=== PATIENT | female | born 2000 | race American Indian/Alaskan Native ===

== ENCOUNTER 2019-06-08 22:44 | Emergency (ER) | payer SELFPAY ==
[2019-06-09 00:43] VITALS: BP 128/72
== END 2019-06-09 00:45 | disposition left against medical advice (07) ==
LOC: ED 22:44
DX: N92.6 Irregular menstruation, unspecified (principal); Z53.21 Procedure and treatment not carried out due to patient leaving prior to being seen by health care provider

== ENCOUNTER 2019-06-17 10:58 | Emergency (ER) | payer BC, OTHER ==
[2019-06-17 11:24] VITALS: BP 123/69
--- NOTE | 2019-06-17 11:27 | Emergency Department Report ---
Chief Complaint: Sore Throat Stated Complaint: THROAT HURTS Time Seen by Provider: 06/17/19 11:25 - HPI History of Present Illness: Ms. Richardson has sore throat without tonsillar edema or exudates. MSE completed. Symptoms started this morning. - Exam Vital Signs: Vital Signs 06/17/19 11:21 Temperature 99.1 F Pulse Rate 104 H Respiratory 18 Rate Blood Pressure 123/69 O2 Sat by Pulse 98 Oximetry MSE screening note: Focused history and physical exam performed. Due to findings the following was ordered: ED Disposition for MSE Clinical Impression: Encounter for medical screening examination Disposition: MED SCREENING EXAM-LEFT Is pt being admited?: No Does the pt Need Aspirin: No Condition: Stable Referrals: JAY ISLAS MD [Staff Physician] - 3-5 Days
== END 2019-06-17 12:08 | disposition left against medical advice (07) ==
LOC: ED 10:58
DX: J02.9 Acute pharyngitis, unspecified (principal); Z00.8 Encounter for other general examination
CPT/HCPCS: 99281

== ENCOUNTER 2019-06-19 05:01 | Emergency (ER) | payer BC, OTHER ==
--- NOTE | 2019-06-19 09:50 | Emergency Department Report ---
HPI - General Chief Complaint: Sore Throat Time Seen by Provider: 06/19/19 09:16 - HPI HPI: Room 42 The patient is a 18 y/o F p/w a cc of sore throat. The pt states she awakened yd with pain with swallowing. The patient states she gargled with salt water and took [place] and it helped somewhat but she continues to have pain with eating. Patient denies history of fever. ED Past Medical Hx - Past Medical History Previous Medical History?: No - Surgical History Past Surgical History?: No Additional Surgical History: Breast - Family History Family history: no significant - Social History Smoking Status: Never Smoker Substance Use Type: None - Medications Home Medications: Home Medications Medication Instructions Recorded Confirmed Last Taken Type Amoxicillin/Potassium Clav 1 each PO BID #20 tablet 06/19/19 Unknown Rx [Augmentin 500-125 Tablet] HYDROcodone/APAP 5-325 [[place] 1 - 2 each PO Q6HR PRN #5 tablet 06/19/19 Unknown Rx 5/325] Ibuprofen [Motrin 800 MG tab] 800 mg PO Q8HR PRN #20 tablet 06/19/19 Unknown Rx ED Review of Systems ROS: Stated complaint: THROAT PAIN Other details as noted in HPI Constitutional: denies: fever ENT: throat pain Respiratory: denies: cough Physical Exam - Physical Exam Vital Signs: Vital Signs 06/19/19 05:09 Temperature 99.1 F Pulse Rate 114 H Respiratory 16 Rate Blood Pressure 116/61 O2 Sat by Pulse 97 Oximetry Physical Exam: GENERAL: The patient is well-developed well-nourished female sitting in chair not appearing to be in acute distress HEENT: Normocephalic. Atraumatic. Extraocular motions are intact. Patient has moist mucous membranes. Pharynx is erythematous with exudate greatest on the right NECK: Supple. No meningitic signs are noted. There is no stridor CHEST/LUNGS: There is no respiratory distress noted. SKIN: There is no rash. There is no edema. There is no diaphoresis. NEURO: The patient is awake, alert, and oriented. The patient is cooperative. The patient has normal speech MUSCULOSKELETAL: There is no evidence of acute injury. ED Course Vital Signs 06/19/19 05:09 Temperature 99.1 F Pulse Rate 114 H Respiratory 16 Rate Blood Pressure 116/61 O2 Sat by Pulse 97 Oximetry ED Medical Decision Making - Differential Diagnosis pharyngitis Critical care attestation.: If time is entered above; I have spent that time in minutes in the direct care of this critically ill patient, excluding procedure time. ED Disposition Clinical Impression: Acute pharyngitis Disposition: TO HOME OR SELFCARE Is pt being admited?: No Does the pt Need Aspirin: No Condition: Stable Instructions: Pharyngitis (ED) Additional Instructions: Return to the emergency department should you develop worsening symptoms, inability to tolerate food or liquids, high fever or any other concerns Prescriptions: Amoxicillin/Potassium Clav [Augmentin 500-125 Tablet] 1 each PO BID #20 tablet Ibuprofen [Motrin 800 MG tab] 800 mg PO Q8HR PRN #20 tablet PRN Reason: Pain, Moderate (4-6) HYDROcodone/APAP 5-325 [[place] 5/325] 1 - 2 each PO Q6HR PRN #5 tablet PRN Reason: Pain Referrals: PRIMARY CARE,MD [Primary Care Provider] - 3-5 Days LELSEE JACOBS MD [Staff Physician] - 3-5 Days (Dr. Jacobs is an education assistant (ear nose and throat doctor). Please follow-up with her for further evaluation) Time of Disposition: 09:54
[2019-06-19 10:09] VITALS: BP 116/60
== END 2019-06-19 10:08 | disposition home or self-care (01) ==
LOC: ED 05:01
DX: J02.9 Acute pharyngitis, unspecified (principal); Z79.1 Long term (current) use of non-steroidal anti-inflammatories (NSAID); Z79.2 Long term (current) use of antibiotics; Z79.899 Other long term (current) drug therapy
CPT/HCPCS: 99282

== ENCOUNTER 2019-09-03 10:31 | Emergency (ER) | payer BC, OTHER ==
[2019-09-03 10:38] VITALS: BP 119/64
--- NOTE | 2019-09-03 11:08 | Emergency Department Report ---
Chief Complaint: Urogenital-Female Stated Complaint: SORES INSIDE VAGINA Time Seen by Provider: 09/03/19 11:01 - HPI History of Present Illness: PAINFUL INTERCOURSE LAST PM- PARTNER LOOKED AND SHE HAD LESIONS IN VAGINAL THEY ARE PAINFUL. NO discharge. No hx herpes. Has IUD. LMP 4-3 - ROS Review of Systems: painful vag lesions no abd pain no vag dc no back pain no dysuria no fever no chills - Exam Vital Signs: Vital Signs 09/03/19 10:35 Temperature 98.0 F Pulse Rate 103 H Respiratory 16 Rate Blood Pressure 119/64 O2 Sat by Pulse 98 Oximetry HR 90 on exam Physical Exam: abd snt no dc no dysuria has IUD LMP 4-3 Her OB is at [facility] Needs HSV testing MSE screening note: Focused history and physical exam performed. Due to findings the following was ordered: Patient discussed with doctor:: LILIAN DUONG ED Disposition for MSE Condition: Stable
== END 2019-09-03 12:18 | disposition left against medical advice (07) ==
LOC: ED 10:31
DX: N89.8 Other specified noninflammatory disorders of vagina (principal)
CPT/HCPCS: 99281

== ENCOUNTER 2021-02-13 09:57 | Emergency (ER) | payer BC, OTHER ==
[2021-02-13] MEDS ORDERED: KETOROLAC 30 MG/1 ML INJ IV ONE (10:27)
[2021-02-13] MEDS ORDERED: SODIUM CHLORIDE 0.9% 1000 ML 1,000 ML IV ONE (10:28)
--- NOTE | 2021-02-13 10:28 | Emergency Department Report ---
ED Abdominal Pain HPI - General Chief Complaint: Abdominal Pain Stated Complaint: CRAMPS STOMACH PAIN RIB CAGE Time Seen by Provider: 02/13/21 10:20 Source: patient Mode of arrival: Ambulatory Limitations: No Limitations - History of Present Illness Initial Comments: 20-year-old female presents to the ER today with complaints of pain to her right upper quadrant and pain underneath her right ribs. She states that the pain started last night. She described as a constant sharp pain. She states that is worse when she takes a deep breath. She denies any associated nausea, vomiting, diarrhea, fever or chills. She denies any diarrhea. She denies any shortness of breath, calf pain or lower extremity swelling. She states that she took Tylenol without much relief of the pain. She has not had any abdominal surgeries in the past. She is currently on her menstrual cycle. MD Complaint: abdominal pain Severity scale (0 -10): 9 - Related Data Previous Rx's Medication Instructions Recorded Last Taken Type Amoxicillin/Potassium Clav 1 each PO BID #20 tablet 06/19/19 Unknown Rx [Augmentin 500-125 Tablet] HYDROcodone/APAP 5-325 [[place] 1 - 2 each PO Q6HR PRN #5 tablet 06/19/19 Unknown Rx 5/325] Ibuprofen [Motrin 800 MG tab] 800 mg PO Q8HR PRN #20 tablet 06/19/19 Unknown Rx Hyoscyamine Subl [Levsin Sl 0.125 0.125 mg SL Q6HR PRN #20 tab 02/13/21 Unknown Rx TAB] Allergies Allergy/AdvReac Type Severity Reaction Status Date / Time No Known Allergies Allergy Verified 02/13/21 10:20 ED Review of Systems ROS: Stated complaint: CRAMPS STOMACH PAIN RIB CAGE Other details as noted in HPI ED Past Medical Hx - Surgical History Additional Surgical History: Breast - Social History Smoking Status: Never Smoker Substance Use Type: None - Medications Home Medications: Home Medications Medication Instructions Recorded Confirmed Last Taken Type Amoxicillin/Potassium Clav 1 each PO BID #20 tablet 06/19/19 Unknown Rx [Augmentin 500-125 Tablet] HYDROcodone/APAP 5-325 [[place] 1 - 2 each PO Q6HR PRN #5 tablet 06/19/19 Unknown Rx 5/325] Ibuprofen [Motrin 800 MG tab] 800 mg PO Q8HR PRN #20 tablet 01/31/20 Unknown Rx Hyoscyamine Subl [Levsin Sl 0.125 0.125 mg SL Q6HR PRN #20 tab 02/13/21 Unknown Rx TAB] ED Physical Exam - General Limitations: No Limitations ED Course Vital Signs 02/13/21 02/13/21 10:18 13:52 Temperature 98.9 F 98.8 F Pulse Rate 118 H 96 H Respiratory 16 19 Rate Blood Pressure 103/51 Blood Pressure 116/69 [Right] O2 Sat by Pulse 98 99 Oximetry ED Medical Decision Making - Lab Data Result diagrams: 02/13/21 11:43 02/13/21 11:43 - Radiology Data Radiology results: report reviewed Patient: KEN WARE MR#: [id number] : 2000 Acct:[id number] Age/Sex: 20 / F ADM Date: 02/13/21 Loc: ED Attending Dr: Ordering Physician: GILBERT LIRA Date of Service: 02/13/21 Procedure(s): US abdomen limited Accession Number(s): [id number] cc: GILBERT LIRA LIMITED RUQ ABDOMINAL ULTRASOUND INDICATION: Right upper quadrant abdominal pain. COMPARISON: No relevant prior imaging study available. FINDINGS: Pancreas: Visualized portions show no significant abnormality. Abdominal Aorta: No significant abnormality. IVC: No significant abnormality. Liver: The liver measures 15.8 cm in length. No significant abnormality. Normal hepatopedal blood flow in the main portal vein. Gallbladder: No significant abnormality. Bile ducts: No significant abnormality. Common bile duct measures 2 mm. Right kidney: No significant abnormality visualized. Free fluid: None. Additional Findings: None. IMPRESSION: No abnormality identified.. Signer Name: Oneil Pleitez Jr, MD Signed: 02/13/2021 11:46 AM Workstation Name: [id number] Transcribed By: TTR Dictated By: ONEIL PLEITEZ JR, MD Electronically Authenticated By: ONEIL PLEITEZ JR, MD Signed Date/Time: 02/13/21 1146 DD/ 1145 TD/TT: Patient: KEN WARE MR#: [id number] : 2000 Acct:[id number] Age/Sex: 20 / F ADM Date: 02/13/21 Loc: ED Attending Dr: Ordering Physician: GILBERT LIRA Date of Service: 02/13/21 Procedure(s): XR chest routine 2V Accession Number(s): [id number] cc: GILBERT LIRA Fluoro Time In Minutes: CHEST 2 VIEWS INDICATION / CLINICAL INFORMATION: Pain underneath right rib. COMPARISON: None available. FINDINGS: SUPPORT DEVICES: None. HEART / MEDIASTINUM: No significant abnormality. LUNGS / PLEURA: No significant pulmonary or pleural abnormality. No pneumothorax. ADDITIONAL FINDINGS: No significant additional findings. IMPRESSION: 1. No acute findings. Signer Name: Jason Barrera DO Signed: 02/13/2021 1:17 PM Workstation Name: [email or web address] Transcribed By: SADE Dictated By: JASON BARRERA DO Electronically Authenticated By: JASON BARRERA DO Signed Date/Time: 02/13/21 131 DD/ 1316 TD/TT: Patient: KEN WARE MR#: [id number] : 2000 Acct:[id number] Age/Sex: 20 / F ADM Date: 02/13/21 Loc: ED Attending Dr: Ordering Physician: GILBERT LIRA Date of Service: 02/13/21 Procedure(s): CT abdomen pelvis w con Accession Number(s): [id number] cc: GILBERT LIRA CT ABDOMEN AND PELVIS WITH CONTRAST INDICATION / CLINICAL INFORMATION: right abd pain . TECHNIQUE: Axial CT images were obtained through the abdomen and pelvis after 95 mL of Omnipaque [address] scans at this location are performed using CT dose reduction for ALARA by means of automated exposure control. COMPARISON: None available. FINDINGS: LOWER CHEST: No significant abnormality. LIVER: No significant abnormality. GALLBLADDER: No significant abnormality. BILE DUCTS: No significant abnormality. PANCREAS: No significant abnormality. SPLEEN: No significant abnormality. ADRENALS: No significant abnormality. RIGHT KIDNEY / URETER: No significant abnormality. LEFT KIDNEY / URETER: No significant abnormality. STOMACH / SMALL BOWEL: The stomach appears normal. There are a few loops of fluid-filled nondilated small bowel which is nonspecific. COLON: Mild colonic stool burden APPENDIX: Not visualized. PERITONEUM: No free fluid. No free air. No fluid collection. LYMPH NODES: No significant adenopathy. AORTA / ARTERIES: No significant abnormality. IVC / VEINS: No significant abnormality. URINARY BLADDER: No significant abnormality. REPRODUCTIVE ORGANS: The IUD is low lying in the cervix. ADDITIONAL FINDINGS: None. SKELETAL SYSTEM: No significant abnormality. IMPRESSION: 1. Fluid-filled loops of small bowel are nonspecific but can be seen with enteritis. 2. Mild colonic stool burden, which can be seen with constipation in the proper clinical setting. 3. The appendix is not identified but no findings of acute inflammation in the right lower quadrant. 4. Low-lying IUD in the cervix. Signer Name: Ki Gonzáles MD Signed: 02/13/2021 3:25 PM Workstation Name: [email or web address] Transcribed By: CRIS Dictated By: KI GONZÁLES MD Electronically Authenticated By: KI GONZÁLES MD Signed Date/Time: 02/13/21 1525 DD/ 1512 TD/TT: - Medical Decision Making 1550: Patient reports feeling much better after IV fluids and pain meds. She is currently sitting comfortably on the recliner on her phone. She is currently not in any distress. She is not toxic or ill-appearing. All labs reviewed, CBC shows mild leukocytosis with a white count of 13.5 but otherwise labs are unremarkable. Gallbladder ultrasound shows nothing acute. CT abdomen pelvis with IV contrast shows - Fluid-filled loops of small bowel are nonspecific but can be seen with enteritis. 2. Mild colonic stool burden, which can be seen with constipation in the proper clinical setting. 3. The appendix is not identified but no findings of acute inflammation in the right lower quadrant. 4. Low-lying IUD in the cervix; chest x-ray shows nothing acute. Patient vital signs shows improvement of her heart rate after IV fluids, and remaining vital signs are stable. At this time, Patient symptoms could be related viral illness given changes consistent with enteritis on CT and mild elevated white count. I do not suspect a bacterial source at this time given patient has not had any fever or bloody stools or mucus in the stools. At this time I do not see any indication for any additional testing, admission or specialist consult. Discussed all imaging results including lab results, suspected diagnosis and treatment plan with patient. Patient expressed understanding of all instructions and agree with plan. Patient was stable at time of discharge Critical care attestation.: If time is entered above; I have spent that time in minutes in the direct care of this critically ill patient, excluding procedure time. ED Disposition Clinical Impression: Abdominal pain, Enteritis Disposition: 01 HOME / SELF CARE / HOMELESS Is pt being admited?: No Does the pt Need Aspirin: No Condition: Stable Instructions: Viral Gastroenteritis, Adult, [id number], Abdominal Pain (ED) Additional Instructions: I recommend that you take the Levsin as prescribed to help with any abdominal pain. I recommend that you drink lots of fluids, lots of water, vitamin water or Gatorade. Recommend that you take a probiotic from [id number]. Follow-up closely with your primary care doctor. Return to the ER if your symptoms changes or worsens in any way. Prescriptions: Hyoscyamine Subl [Levsin Sl 0.125 TAB] 0.125 mg SL Q6HR PRN #20 tab PRN Reason: abdominal pain Referrals: [facility] [Provider Group] - 3-5 Days Forms: Work/School Release Form(ED) Time of Disposition: 15:36 Print Language: RWANDAN
--- NOTE | 2021-02-13 11:51 | Ultrasound Report ---
LIMITED RUQ ABDOMINAL ULTRASOUND INDICATION: Right upper quadrant abdominal pain. COMPARISON: No relevant prior imaging study available. FINDINGS: Pancreas: Visualized portions show no significant abnormality. Abdominal Aorta: No significant abnormality. IVC: No significant abnormality. Liver: The liver measures 15.8 cm in length. No significant abnormality. Normal hepatopedal blood fl ow in the main portal vein. Gallbladder: No significant abnormality. Bile ducts: No significant abnormality. Common bile duct measures 2 mm. Right kidney: No significant abnormality visualized. Free fluid: None. Additional Findings: None. IMPRESSION: No abnormality identified.. Signer Name: Oneil Pleitez Jr, MD Signed: 02/13/2021 11:46 AM Workstation Name: [id number]
[2021-02-13 12:06] LABS: Basophils # (Auto) 0.1 K/mm3 (0.0-0.1); Basophils % (Auto) 0.8 % (0.0-1.8); Eosinophils # (Auto) 0.2 K/mm3 (0.0-0.4); Eosinophils % (Auto) 1.7 % (0.0-4.3); Hematocrit 35.9 % (30.3-42.9); Hemoglobin 11.9 gm/dl (10.1-14.3); Lymphocytes # (Auto) 1.3 K/mm3 (1.2-5.4); Mean Corpuscular HGB Conc 33 % (30-34); Mean Corpuscular Volume 87 fl (79-97); Monocytes # (Auto) 1.1 K/mm3 (0.0-0.8); Monocytes % (Auto) 8.5 % (0.0-7.3); Platelet Count 436 K/mm3 (140-440); Red Blood Count 4.15 M/mm3 (3.65-5.03); Red Cell Distribution Width 14.3 % (13.2-15.2)
[2021-02-13 12:14] LABS: Bilirubin,Urine NEG (Negative); Blood,Urine LG (Negative); Color,Urine Yellow (Yellow); Mucus,Urine 3+ /HPF; RBC,Urine > 182.0 /HPF (0.0-6.0)
[2021-02-13 12:30] LABS: Alanine Aminotransferase 22 units/L (7-56); Blood Urea Nitrogen 7 mg/dL (7-17); Calcium 8.8 mg/dL (8.4-10.2); Hemolysis Index 0
[2021-02-13 12:34] LABS: BUN/Creatinine Ratio 14
--- NOTE | 2021-02-13 13:21 | XRay Report ---
CHEST 2 VIEWS INDICATION / CLINICAL INFORMATION: Pain underneath right rib. COMPARISON: None available. FINDINGS: SUPPORT DEVICES: None. HEART / MEDIASTINUM: No significant abnormality. LUNGS / PLEURA: No significant pulmonary or pleural abnormality. No pneumothorax. ADDITIONAL FINDINGS: No significant additional findings. IMPRESSION: 1. No acute findings. Signer Name: Jason Villar DO Signed: 02/13/2021 1:17 PM Workstation Name: [id number]
[2021-02-13 14:01] VITALS: BP 103/51
--- NOTE | 2021-02-13 15:29 | Cat Scan Report ---
CT ABDOMEN AND PELVIS WITH CONTRAST INDICATION / CLINICAL INFORMATION: right abd pain . TECHNIQUE: Axial CT images were obtained through the abdomen and pelvis after 95 mL of Omnipaque [address] scans at this location are performed using CT dose reduction for ALARA by means of automated exposure control. COMPARISON: None available. FINDINGS: LOWER CHEST: No significant abnormality. LIVER: No significant abnormality. GALLBLADDER: No significant abnormality. BILE DUCTS: No significant abnormality. PANCREAS: No significant abnormality. SPLEEN: No significant abnormality. ADRENALS: No significant abnormality. RIGHT KIDNEY / URETER: No significant abnormality. LEFT KIDNEY / URETER: No significant abnormality. STOMACH / SMALL BOWEL: The stomach appears normal. There are a few loops of fluid-filled nondilated s mall bowel which is nonspecific. COLON: Mild colonic stool burden APPENDIX: Not visualized. PERITONEUM: No free fluid. No free air. No fluid collection. LYMPH NODES: No significant adenopathy. AORTA / ARTERIES: No significant abnormality. IVC / VEINS: No significant abnormality. URINARY BLADDER: No significant abnormality. REPRODUCTIVE ORGANS: The IUD is low lying in the cervix. ADDITIONAL FINDINGS: None. SKELETAL SYSTEM: No significant abnormality. IMPRESSION: 1. Fluid-filled loops of small bowel are nonspecific but can be seen with enteritis. 2. Mild colonic stool burden, which can be seen with constipation in the proper clinical setting. 3. The appendix is not identified but no findings of acute inflammation in the right lower quadrant. 4. Low-lying IUD in the cervix. Signer Name: Ki Gonzáles MD Signed: 02/13/2021 3:25 PM Workstation Name: [employer]
== END 2021-02-13 16:04 | disposition home or self-care (01) ==
LOC: ED 09:57
DX: K52.9 Noninfective gastroenteritis and colitis, unspecified (principal); Z98.890 Other specified postprocedural states
CPT/HCPCS: 36415; 71046; 74177; 76705; 80053; 81001; 83690; 84703; 85025; 96361; 96374; 99284; J1885; J7030; Q9967